=== PATIENT | male | born 1955 | race Caucasian/White ===

== ENCOUNTER 2022-07-21 09:20 | Emergency (ER) | payer MEDICARE, OTHER ==
[~2022-07-21] VITALS: Ht 175.3 cm; Wt 74.8 kg
[2022-07-21] MEDS ORDERED: IBUP800 PO (10:10)
[2022-07-21] MEDS ORDERED: LORA.5 PO (10:10)
[2022-07-21] MEDS ORDERED: Robaxin750 MG PO (10:11)
[2022-07-21] MEDS ORDERED: CYCL10 PO (12:09)
== END 2022-07-21 12:22 | disposition home or self-care (01) ==
LOC: ER 09:20
DX: M54.50 Low back pain, unspecified (principal); G89.29 Other chronic pain; Z88.0 Allergy status to penicillin; Z79.899 Other long term (current) drug therapy
CPT/HCPCS: 72100

== ENCOUNTER → 2025-11-10 | Outpatient (CLI) | payer MEDICARE, OTHER ==
[~2025-11-10] MED LIST: CYCL10 PO; IBUP800 PO; LORA.5 PO; Robaxin750 MG PO
== END ==
LOC: LAB 11:00 → LAB SHORT 11:00
DX: R30.0 Dysuria (principal)
CPT/HCPCS: 87086